=== PATIENT | female | born 1955 | race Caucasian/White ===

== ENCOUNTER → 2018-04-16 | Outpatient (CLI) | payer MEDICARE, MEDICAID | LOC: M.RAD 04-07 12:38 | DX: N63.20 Unspecified lump in the left breast, unspecified quadrant (principal); N64.4 Mastodynia; R07.9 Chest pain, unspecified ==

== ENCOUNTER → 2018-07-30 | Outpatient (CLI) | payer MEDICARE, MEDICAID | LOC: M.RAD 07-21 11:12 | DX: N63.23 Unspecified lump in the left breast, lower outer quadrant (principal); N63.24 Unspecified lump in the left breast, lower inner quadrant; N64.52 Nipple discharge ==

== ENCOUNTER → 2018-10-03 | Outpatient (CLI) | payer MEDICARE, MEDICAID | LOC: M.ULTRA 10:00 | DX: D25.9 Leiomyoma of uterus, unspecified (principal); N93.9 Abnormal uterine and vaginal bleeding, unspecified; R93.89 Abnormal findings on diagnostic imaging of other specified body structures; Z87.42 Personal history of other diseases of the female genital tract ==

== ENCOUNTER → 2019-06-01 | Outpatient (CLI) | payer MEDICARE, MEDICAID | LOC: M.MRI 08:30 | DX: I67.82 Cerebral ischemia (principal); R90.82 White matter disease, unspecified; H70.91 Unspecified mastoiditis, right ear; J32.0 Chronic maxillary sinusitis ==